=== PATIENT | female | born 1980 | race Caucasian/White ===

== ENCOUNTER 2017-01-12 06:13 | Inpatient (IN) | payer OTHER ==
[2017-01-12] MEDS ORDERED: OLIVE OIL 118 ML BTL MISC PRN (06:28)
[2017-01-12] MEDS ORDERED: LIDOCAINE 1% 30 ML SDV SC PRN (06:28)
[2017-01-12] MEDS ORDERED: TERBUTALINE SULFATE 1 MG/ML VIAL IV PRN (06:28)
[2017-01-12] MEDS ORDERED: OXYTOCIN/RINGERS LACTATE 1,000 ML IV PRN (06:28)
[2017-01-12] MEDS ORDERED: EPSOM SALT 454 GM TP PRN (06:28)
[2017-01-12 06:50] LABS: % IMMATURE GRANULYOCYTES 1.5 % (0.0-1.1); ABSOLUTE IMMATURE GRANULOCYTES 0.11 10^3/uL (0.00-0.10); ADD DIFF? NO; ADD MORPH? NO; ADD SCAN? NO; ATYPICAL LYMPHOCYTE FLAG 10 (0-99); FRAGMENT RBC FLAG 0 (0-99); HEMATOCRIT 35.3 % (38.0-47.0); HEMOGLOBIN 12.1 g/dL (12.6-16.3); LEFT SHIFT FLG 10 (0-99); LIPEMIA HEMOLYSIS FLAG 90 (0-99); MEAN CELL HEMOGLOBIN 33.4 pg (27.9-34.1); MEAN CELL HEMOGLOBIN CONCENTR. 34.3 g/dL (32.4-36.7); MEAN CELL VOLUME 97.5 fL (81.5-99.8); MEAN PLATELET VOLUME 12.5 fL (8.7-11.7); PLATELET CLUMPS FLAG 0 (0-99); PLATELET COUNT 104 10^3/uL (150-400); RED BLOOD CELL COUNT 3.62 10^6/uL (4.18-5.33); RED CELL DISTRIBUTION WIDTH 14.6 % (11.5-15.2)
[2017-01-12] MEDS ORDERED: OXYTOCIN/LR *STANDARD DOSE PROTOCOL IV SCH (07:00)
[2017-01-12] MEDS ORDERED: LIDOCAINE 1% 30 ML SDV ONE (07:16)
[2017-01-12] MEDS ORDERED: OLIVE OIL 118 ML BTL ONE (07:17)
[2017-01-12] MEDS ORDERED: MISOPROSTOL 200 MCG TAB ONE (07:17)
[2017-01-12] MEDS ORDERED: OXYTOCIN 10 UNIT/ML VIAL ONE (07:17)
[2017-01-12] MEDS ORDERED: TERBUTALINE SULFATE 1 MG/ML VIAL ONE (07:17)
[2017-01-12] MEDS ORDERED: AMMONIA AROMATIC 1 EACH AMP IH ONE (07:17)
[2017-01-12] MEDS: LR 1,000 ML IV PRN ×2 (07:34→16:10)
--- NOTE | 2017-01-12 10:10 | GHP ---
[f rep st] PREOP HISTORY AND PHYSICAL DATE OF ADMISSION: 01/12/2017 ADMITTING DIAGNOSIS: A 36-year-old 2, para 1-0-0-1, at 40 weeks and 0 days with an MAT of M arch 2016. Elective induction at term. The patient presents, denies contractions, denies leaking fluid, vaginal bleeding, positive mo vement. PAST MEDICAL HISTORY: Hypothyroid, migraines, left breast lump evaluated 05/25/2016, mild asthma, o ccasional acid reflux, and UTI. PAST SURGICAL HISTORY: [place] teeth removal in high school, sinus surgery in 2009. MEDICATIONS: Levothyroxine 88 mcg, vitamin. ALLERGIES: Avelox causes facial swelling. GYNECOLOGICAL HISTORY: Denies history of abnormal Pap smears or STDs. FAMILY HISTORY: Noncontributory. SOCIAL HISTORY: . Denies alcohol, tobacco, or drug use. OB HISTORY: 10/2013: female, 8 pounds 8 ounces, full term at 40 weeks, no complications. LABS: B positive, antibody negative, HIV negative, hepatitis B negative, syphilis negative , gonorrhea and chlamydia negative, rubella immune, GBS negative. One-hour GTT 107. Since admissio n, hemoglobin 12.1, hematocrit 35.3, platelets 104. TSH 0.867 on 11/24/2016. Verified genetic test ing negative. PHYSICAL EXAMINATION: VITAL SIGNS: Stable. GENERAL APPEARANCE: Alert and oriented x3. CARDIOVAS CULAR: Heart rate regular. LUNGS: Clear to auscultation bilaterally. ABDOMEN: Gravid, nontender . : Vaginal exam: Fingertip/thick/high at 0735 this morning. position cephalic. h eart tracing category 1. heart tones 135 with moderate variability. Positive accels, no dece ls. Contractions occasional. ASSESSMENT: A 36-year-old 2, para 1-0-0-1, at 40 weeks and 0 days presents for elective ind uction at term. PLAN: Pitocin per protocol. Continue maternal/ monitoring. Epidural per patient's request. Anticipate . /[id number]/MODL
--- NOTE | 2017-01-12 13:01 | OBPROG ---
OBG Progress Note Assessment/Plan: Assessment: 36y/o IUP @40w0d for elective IOL at term Plan: Con't pitocin per protocol Con't maternal/ monitoring Disc AROM if pt desires Epidural per pt request Anticipate 01/12/17 12:58 Subjective: Pt resting comfortably in bed, FOB at bedside. States feeling CTXs increase in strength. Objective: 01/12/17 06:40 Patient ABO/Rh B POSITIVE 01/12/17 06:40 - SVE Dilation (cm): 2 Effacement (%): Less than 50 Station: -3 Current Contraction Pattern: Regular FHR (bpm): 130 FHR Pattern Variability: Moderate FHR Category: 1 (+accels, no decels) Membranes: Intact - Physical Exam General Appearance: alert, no apparent distress Abdomen: non-tender, soft Neuro/Psych: alert, normal mood/affect, oriented x 3 ICD10 Worksheet Patient Problems: Problems Problem Status Onset Elective induction of labor planned Acute Hypothyroid Acute Spontaneous vaginal delivery Acute
[2017-01-12] MEDS ORDERED: fentaNYL 2MCG/ML/BUP 0.1% RTU 100 ML BAG EP ONE (15:51)
[2017-01-12] MEDS ORDERED: PHENYLEPHRINE HCL 100 MCG/ML SYR ONE (15:52)
[2017-01-12] MEDS ORDERED: BUPIVACAINE 0.25% 30 ML SDV ONE (15:52)
[2017-01-12] MEDS ORDERED: fentaNYL 100 MCG/2 ML INJ ONE (15:52)
[2017-01-12] MEDS ORDERED: PHENYLEPHRINE HCL 100 MCG/ML SYR IVP PRN (16:34)
[2017-01-12] MEDS ORDERED: ONDANSETRON 4 MG/2 ML VIAL IVP PRN (16:34)
[2017-01-12] MEDS ORDERED: fentaNYL 2MCG/ML/BUP 0.1% RTU 100 ML EP SCH (17:00)
[2017-01-12] MEDS ORDERED: LR 500 ML IV SCH (17:00)
--- NOTE | 2017-01-12 17:43 | OBPROG ---
OBG Progress Note Assessment/Plan: Assessment: 36y/o IUP @40w0d for elective IOL at term Plan: Con't pitocin per protocol Con't maternal/ monitoring IUPC placed Epidural placed Anticipate 01/12/17 12:58 01/12/17 17:35 Subjective: Pt resting comfortably in bed s/p epidural, denies pain with CTXs Objective: 01/12/17 06:40 Patient ABO/Rh B POSITIVE 01/12/17 06:40 - SVE Dilation (cm): 4 Effacement (%): 75 Station: -2 Current Contraction Pattern: Regular (q 2 min) FHR (bpm): 125 FHR Pattern Variability: Moderate (+accels, early decels since epidural) Membranes: AROM Amniotic Fluid Color: Clear - Physical Exam General Appearance: alert, no apparent distress Abdomen: non-tender, soft Membranes: AROM Amniotic Fluid Color: clear Skin: warm/dry Neuro/Psych: alert, normal mood/affect, oriented x 3 ICD10 Worksheet Patient Problems: Problems Problem Status Onset Elective induction of labor planned Acute Hypothyroid Acute Spontaneous vaginal delivery Acute
[2017-01-12] MEDS ORDERED: HYDROCODONE/APAP 5/325 TAB PO PRN (20:37)
[2017-01-12] MEDS ORDERED: ACETAMINOPHEN 325 MG TAB PO PRN (20:37)
--- NOTE | 2017-01-12 20:44 | OBPROC ---
- Labor and Delivery Onset of Contractions Date: 01/12/17 Onset of Contractions Time: 15:30 Onset of Contractions Type: Induced Rupture of Membranes Date: 01/12/17 Rupture of Membranes Time: 14:05 Rupture of Membranes Type: Artificial Amniotic Fluid Color: Clear Dilation Complete Time: 19:41 Delivery Type: Spontaneous Placenta Delivery Date: 01/12/17 Placenta Delivery Time: 20:01 Episiotomy/Laceration: 2nd Degree Repair: 3-0, Vicryl (x1) EBL: 300 Complications: None - Medications Labor Augmentation/Induction Meds Used: Pitocin Labor Augmentation/Induction Indication: Elective Anesthesia: Epidural - Info Infant A Delivery Date: 01/12/17 Delivery Time: 19:54 Sex of : Female Score (1 Min): 8 Score (5 Min): 9
[2017-01-12] MEDS: IBUPROFEN 600 MG TAB PO PRN (20:58)
--- NOTE | 2017-01-12 21:44 | POSTANESTH ---
Post Anesthetic Evaluation Cardiovascular Status: Normal, Stable Respiratory Status: Normal, Stable, Similar to Pre-op Cond. Level of Consciousness/Mental Status: Can Participate in Eval, Alert and Oriented Pain Control: Adequate, Prn Tx Ordered Nausea/Vomiting Control: Adequate, Prn Tx Ordered Complications Possibly Related to Anesthesia: None Noted (Tolerated CSE well, stable, comfortable.)
--- NOTE | 2017-01-12 21:47 | PREANESOB ---
Obstetric Pre-Anesthesia Info - General Info Proposed Procedure: Labor and delivery with pitocin. : 2 Para: 1 WBD: 40 - Info Status: Full Term Monitors: External FHR Baseline (bpm): 130 FHR Pattern: Reassuring - Labor Status Cervical Dilation per last OB SVE: 4 Station per last OB SVE: -2 Rupture of Membranes Time: 14:05 Amniotic Fluid Color: Clear Pitocin: In Use Indications for Labor Analgesia: Induction of Labor, Pain Control Labor Epidural: Proposed Anesthesia ROS: Prior labor epidural. Hypothyroid. Allergies/Adverse Reactions: Allergy/AdvReac Type Severity Reaction Status Date / Time avalox Allergy Swelling/ne Uncoded 11/07/13 23:22 ck,face,thr oat Home Medications: Medication Instructions Recorded Bifera 1 tab PO BID 11/07/13 Levothyroxine 75 mcg PO DAILY 11/07/13 1 tab PO DAILY 11/07/13 Herbals/Supplements -Info Only 11/20/13 Visit Medications: Generic Name Dose Route Start Last Admin Trade Name Brentq PRN Reason Stop Dose Admin Acetaminophen 325 - 650 mg 01/12/17 20:37 Tylenol PO 07/11/17 20:36 Q4HRS PRN Pain, Mild Hydrocodone Bitart/Acetaminophen 1 - 2 tab 01/12/17 20:37 [place] 5/325 PO 01/22/17 20:36 Q4HRS PRN Pain, Moderate Diphenhydramine HCl 25 - 50 mg 01/12/17 16:34 Benadryl Injection IVP 07/11/17 16:33 Q6HRS PRN Itching Docusate Sodium 100 mg 01/12/17 20:37 Colace PO 07/11/17 20:36 BID PRN Constipation Lactated Ringer's 1,000 mls @ 0 mls/hr 01/12/17 06:28 01/12/17 16:10 Lr IV 07/11/17 06:27 1,000 mls PRN PRN Administration SEE PROTOCOL CONDITIONS Protocol Per Protocol Oxytocin/Lactated Ringer's 1,000 mls @ 150 mls/hr 01/12/17 06:28 Pitocin 20 Units/Lr (Premix) IV PRN PRN Post- bleeding Oxytocin/Lactated Ringer's 500 mls @ 0 mls/hr 01/12/17 07:00 01/12/17 07:34 Pitocin 30 Units/Lr (Premix) IV 07/11/17 06:59 500 mls CONT PORTILLO Administration Protocol Per Protocol Fentanyl/Bupivacaine HCl 100 mls @ 0 mls/hr 01/12/17 17:00 Fentanyl/Bupivacaine/Ns 2 Mcg/Ml 0.1% (Premix EP 01/22/17 16:59 CONT PORTILLO Protocol As Directed Lactated Ringer's 500 mls @ 0 mls/hr 01/12/17 17:00 Lr IV 07/11/17 16:59 CONT PORTILLO As Directed Ibuprofen 600 mg 01/12/17 06:28 01/12/17 20:58 Motrin PO 07/11/17 06:27 600 mg Q6HRS PRN Administration post , inflammation Levothyroxine Sodium 88 mcg 01/13/17 06:00 Synthroid PO 07/12/17 05:59 DAILY AT 6AM PORTILLO Lidocaine HCl 30 ml 01/12/17 06:28 Lidocaine Hcl 1% SC 07/11/17 06:27 ONCE PRN Episiotomy Magnesium Sulfate 454 gm 01/12/17 06:28 Epsom Salt TP 07/11/17 06:27 PRN PRN perineal discomfort Lee Oil 118 ml 01/12/17 06:28 Sweet Oil MISC 07/11/17 06:27 ONCE PRN preneal massage Ondansetron HCl 4 mg 01/12/17 16:34 Zofran IVP 07/11/17 16:33 Q4HRS PRN Nausea/Vomiting, Can't Take PO Phenylephrine HCl 100 mcg 01/12/17 16:34 Eze-Synephrine IVP 07/11/17 16:33 .Q2M PRN Hypotension Polysaccharide Iron Complex 28 mg 01/13/17 09:00 Bifera PO 07/12/17 08:59 DAILY PORTILLO Terbutaline Sulfate 0.25 mg 01/12/17 06:28 Brethine IV 07/11/17 06:27 ONCE PRN Tachysystole Discontinued Medications Generic Name Dose Route Start Last Admin Trade Name Freq PRN Reason Stop Dose Admin Ammonia (Aromatic Spirit) Confirm 01/12/17 07:17 Ammonia Aromatic Administered 01/12/17 07:18 Dose 1 each IH .STK-MED ONE Bupivacaine HCl Confirm 01/12/17 15:52 Sensorcaine 0.25% Sdv Administered 01/12/17 15:53 Dose 30 ml .ROUTE .STK-MED ONE Ephedrine Sulfate Confirm 01/12/17 07:17 Ephedrine Sulfate Administered 01/12/17 07:18 Dose 50 mg .ROUTE .STK-MED ONE Fentanyl Confirm 01/12/17 15:52 Sublimaze Administered 01/12/17 15:53 Dose 100 mcg .ROUTE .STK-MED ONE Fentanyl/Bupivacaine HCl Confirm 01/12/17 15:51 Fentanyl/Bupivacaine/Ns 2 Mcg/Ml 0.1% (Premix Administered 01/12/17 15:52 Dose 100 ml EP .STK-MED ONE Lidocaine HCl Confirm 01/12/17 07:16 Lidocaine Hcl 1% Administered 01/12/17 07:17 Dose 30 ml .ROUTE .STK-MED ONE Misoprostol Confirm 01/12/17 07:17 Cytotec Administered 01/12/17 07:18 Dose 1,000 mcg .ROUTE .STK-MED ONE Lee Oil Confirm 01/12/17 07:17 Sweet Oil Administered 01/12/17 07:18 Dose 118 ml .ROUTE .STK-MED ONE Oxytocin Confirm 01/12/17 07:17 Pitocin Administered 01/12/17 07:18 Dose 30 unit .ROUTE .STK-MED ONE Phenylephrine HCl Confirm 01/12/17 15:52 Eze-Synephrine Administered 01/12/17 15:53 Dose 1,000 mcg .ROUTE .STK-MED ONE Terbutaline Sulfate Confirm 01/12/17 07:17 Brethine Administered 01/12/17 07:18 Dose 1 mg .ROUTE .STK-MED ONE - Anesthesia History Response to Local Anesthetics: Normal Anesthesia & Operative History: No Prior Problems - Social History Substance Use/Abuse: Denies - Focused Exam Blood Pressure: 115/74 Heart Rate: 84 Height/Weight (Nursing): Height 162.56 cm Weight 87.543 kg Physical Exam: Within normal limits. ASA Status: II Labs: 01/12/17 06:40 Patient ABO/Rh B POSITIVE 01/12/17 06:40 - Plan Anesthetic Plan: CSE Consent Signed and on Chart: Yes Patient/Guardian Understands and Agrees to Plan: Yes
[2017-01-12 23:30] VITALS: O2SAT 94
[2017-01-13] MEDS: IBUPROFEN 600 MG TAB PO PRN ×4 (03:25→21:36)
[2017-01-13] MEDS: LEVOTHYROXINE 88 MCG TAB PO SCH (05:29)
--- NOTE | 2017-01-13 07:44 | OBPROG ---
OBG Progress Note Assessment/Plan: Assessment: 1) s/p PPD # 1 - pt is stable 2) Hypothyroid - stable on meds Plan: Continue routine pp care Encourage ambulation Plan for d/c home in am 01/1401/13/17 07:42 Subjective: Pt seen and examined. Doing well, no complaints. Some cramping, relief with Motrin. Moderate lochia. without difficulty. Objective: 01/12/17 06:40 Patient ABO/Rh B POSITIVE 01/12/17 06:40 Temp Pulse Resp BP Pulse Ox 36.9 C 81 20 99/61 L 94 01/12/17 23:15 01/12/17 23:15 01/12/17 23:15 01/12/17 23:15 01/12/17 23:15 Uterine Position/Fundal Height: Umbilicus -2 Uterine Tone: Firm - Physical Exam General Appearance: WD/WN, alert, no apparent distress Respiratory: lungs clear, normal breath sounds Cardiac/Chest: regular rate, rhythm Abdomen: normal bowel sounds, non-tender, soft, flatus (+) Genitourinary: laceration (intact), lochia (moderate) Extremities: non-tender, normal inspection Neuro/Psych: alert, normal mood/affect, oriented x 3 ICD10 Worksheet Patient Problems: Problems Problem Status Onset (normal spontaneous vaginal delivery) Acute Hypothyroid Acute Spontaneous vaginal delivery Acute
[2017-01-13] MEDS: IRON POLYSAC/IRON HEME 28 MG TAB PO SCH (09:34)
[2017-01-13] MEDS: DOCUSATE SODIUM 100 MG CAP PO PRN ×2 (09:35→21:36)
[2017-01-13 21:13] VITALS: BP 106/67
[2017-01-14] MEDS: IBUPROFEN 600 MG TAB PO PRN ×2 (03:52→10:30)
[2017-01-14] MEDS: LEVOTHYROXINE 88 MCG TAB PO SCH (05:53)
[2017-01-14] MEDS: DOCUSATE SODIUM 100 MG CAP PO PRN (08:34)
[2017-01-14] MEDS: IRON POLYSAC/IRON HEME 28 MG TAB PO SCH (08:34)
--- NOTE | 2017-01-14 08:56 | OBPROG ---
OBG Progress Note Assessment/Plan: Assessment: 36 y/o PPD #2 s/p doing well and ready to d/c home. Plan: D/c home today with Ibuprofen. Follow-up @ [facility] 4 and 6 weeks. 01/14/17 08:57 Subjective: Pt is doing well today, min cramping, min lochia today. Breast feeding is going well and they are ready to d/c home. Objective: 01/12/17 06:40 Patient ABO/Rh B POSITIVE 01/12/17 06:40 Temp Pulse Resp BP Pulse Ox 36.1 C 89 17 106/67 94 01/13/17 20:40 01/13/17 20:40 01/13/17 20:40 01/13/17 20:40 01/13/17 20:40 Uterine Position/Fundal Height: Umbilicus -2 Uterine Tone: Firm - Physical Exam General Appearance: WD/WN, alert, no apparent distress Neck: non-tender, full range of motion, supple Respiratory: chest non-tender, lungs clear, normal breath sounds Cardiac/Chest: regular rate, rhythm Abdomen: normal bowel sounds Extremities: swelling (no), Murtaza's sign (neg) ICD10 Worksheet Patient Problems: Problems Problem Status Onset (normal spontaneous vaginal delivery) Acute Hypothyroid Acute Spontaneous vaginal delivery Acute
[2017-01-14 10:36] VITALS: PULSE 93; RESP 16; TEMP 98.4
== END 2017-01-14 11:00 | disposition home or self-care (01) | DRG 775 ==
LOC: FLD 06:13 → FOB 23:05
PROVIDERS: ADMIT Obstetrics & Gynecology; ATTEND Obstetrics & Gynecology
PROC: 0KQM0ZZ Repair Perineum Muscle, Open Approach (ICD-10-PCS; principal; 2017-01-12)
PROC: 10907ZC Drainage of Amniotic Fluid, Therapeutic from Products of Conception, Via Natural or Artificial Opening (ICD-10-PCS; principal; 2017-01-12)
PROC: 10E0XZZ Delivery of Products of Conception, External Approach (ICD-10-PCS; principal; 2017-01-12)
PROC: 4A1J7BZ Monitoring of Products of Conception, Nervous Pressure, Via Natural or Artificial Opening (ICD-10-PCS; principal; 2017-01-12)
PROC: 3E033VJ Introduction of Other Hormone into Peripheral Vein, Percutaneous Approach (ICD-10-PCS; principal; 2017-01-12)
DX: O70.1 Second degree perineal laceration during delivery (principal); Z3A.40 40 weeks gestation of pregnancy; Z37.0 Single live birth
CPT/HCPCS: J2370; J2590; J3010; J3105